=== PATIENT | female | born 1950 | race Caucasian/White ===

== ENCOUNTER → 2019-01-21 12:07 | Outpatient (CLI) | payer MEDICARE, OTHER, SELFPAY ==
--- NOTE | 2019-01-21 | DI.RAD.S_ITS ---
PROCEDURE: XR KNEE RT 1TO2V INDICATIONS: BILAT KNEE PAIN TECHNIQUE: 2 son report sign report sign report views of the knee were acquired. COMPARISON: None. FINDINGS: Bones: No fractures or dislocations. No suspicious bony lesions. Soft tissues: No joint effusion. No suspicious soft tissue calcifications. IMPRESSION: Mild degenerative joint space narrowing at the lateral compartment, minimal such degeneration of the medial compartment and no effusion or loose body seen. Dictated by: Geraldo Tello M.D. on 01/21/2019 at 15:09 Approved by: Geraldo Tello M.D. on 01/21/2019 at 15:10
--- NOTE | 2019-01-21 | DI.RAD.S_ITS ---
PROCEDURE: XR KNEE LT 1TO2V INDICATIONS: Left KNEE PAIN TECHNIQUE: 2 views of the knee were acquired. COMPARISON: None. FINDINGS: Bones: No fractures or dislocations. No suspicious bony lesions. Soft tissues: No joint effusion. No suspicious soft tissue calcifications. IMPRESSION: Normal for age, source of current knee pain symptoms is not seen. Dictated by: Geraldo Tello M.D. on 01/21/2019 at 14:23 Approved by: Geraldo Tello M.D. on 01/21/2019 at 14:24
== END ==
PROVIDERS: PCP Student in an Organized Health Care Education/Training Program; Visit Provider Student in an Organized Health Care Education/Training Program
DX: M25.561 Pain in right knee (principal); M25.562 Pain in left knee
CPT/HCPCS: 73560